=== PATIENT | female | born 1965 | race Caucasian/White ===

== ENCOUNTER 2018-06-26 10:26 | Inpatient (IN) | payer MEDICAID ==
[2018-06-26] VITALS (7 sets, daily range): BP systolic 103–128; BP diastolic 61–86
[~2018-06-26] VITALS: Ht 170.2 cm; Wt 81.8 kg
[2018-06-26] MEDS ORDERED: SODIUM CHLORIDE 0.9% 1,000ML IVBOLUS ONE ×2 (10:30→12:00)
[2018-06-26] MEDS ORDERED: SODIUM CHLORIDE FLUSH 10ML SYR IVF ONE (10:30)
[2018-06-26 11:13] LABS: BASOPHILS # (AUTO) 0.02 x10^3/uL (0-0.1); BASOPHILS % (AUTO) 0 % (0-1); EOSINOPHILS # (AUTO) 0.03 x10^3/uL (0-0.4); EOSINOPHILS % (AUTO) 0 % (1-7); LYMPHOCYTES # (AUTO) 1.63 x10^3/uL (1-3.4); LYMPHOCYTES % (AUTO) 15 % (22-44); MD NO; MEAN CORPUSCULAR HEMOGLOBIN 29.1 pg (27.0-34.8); MEAN CORPUSCULAR HGB CONC 33.5 g/dL (32.4-35.8); MEAN CORPUSCULAR VOLUME 87.1 fL (80-100); MEAN PLATELET VOLUME 7.8 fL (7.4-10.4); MONOCYTES % (AUTO) 4 % (2-9); NEUTROPHILS # (AUTO) 8.75 x10^3/uL (1.8-6.8); NEUTROPHILS % (AUTO) 81 % (42-75); PLATELET COUNT 343 x10^3/uL (130-400); RED CELL DISTRIBUTION WIDTH 13.8 % (9.6-15.2)
[2018-06-26 11:20] LABS: CHLORIDE 109 mmol/L (98-107)
[2018-06-26 11:21] LABS: ALANINE AMINOTRANSFERASE 44 U/L (12-78); ALBUMIN 3.2 g/dL (3.4-5.0); ANION GAP 4 mmol/L (5-15); CALCIUM 8.4 mg/dL (8.5-10.1); CREATININE 1.53 mg/dL (0.55-1.02)
[2018-06-26 11:25] LABS: ALKALINE PHOSPHATASE 70 U/L (45-117); BILIRUBIN,TOTAL 0.3 mg/dL (0.2-1.0); TOTAL PROTEIN 6.6 g/dL (6.4-8.2)
[2018-06-26] MEDS ORDERED: DULO60CA7 PO (13:12)
[2018-06-26] MEDS ORDERED: PHEN37.53 PO (13:12)
[2018-06-26] MEDS ORDERED: TRAZ-137 PO (13:27)
[2018-06-26] MEDS ORDERED: ACETAMINOPHEN 325 MG TABLET PO PRN (14:00)
[2018-06-26] MEDS ORDERED: ONDANSETRON 2MG/ML, 2ML IVPush PRN (14:00)
[2018-06-26] MEDS ORDERED: ONDANSETRON ODT 4 MG PO PRN (14:00)
[2018-06-26] MEDS: ENOXAPARIN 40 MG/0.4 ML SQ SCH (14:59)
[2018-06-26] MEDS: SODIUM CHLORIDE 0.9% 1,000 ML IV SCH ×2 (15:09→21:34)
[2018-06-26 18:58] LABS: AMPHETAMINE SCREEN, URINE Positive (Negative); BARBITURATE SCREEN, URINE Negative (Negative); BENZODIAZEPINE SCREEN, URINE Negative (Negative); CANNABINOID SCREEN, URINE Negative (Negative); COCAINE SCREEN, URINE Negative (Negative); METHADONE SCREEN, URINE Negative (Negative); OPIATE SCREEN, URINE Negative (Negative)
[2018-06-26 19:00] LABS: CULTURE INDICATED? YES; MICROSCOPIC INDICATED
[2018-06-27 01:32] VITALS: BP 126/68
[2018-06-27 07:32] VITALS: BP 149/89
[2018-06-27 07:55] VITALS: BP 152/88
[2018-06-27 07:56] VITALS: BP 157/100
[2018-06-27 07:57] VITALS: BP 157/101
[2018-06-27] MEDS: SODIUM CHLORIDE 0.9% 1,000 ML IV SCH (08:00)
[2018-06-27 10:43] LABS: BASOPHILS # (AUTO) 0.02 x10^3/uL (0-0.1); BASOPHILS % (AUTO) 0 % (0-1); EOSINOPHILS # (AUTO) 0.06 x10^3/uL (0-0.4); EOSINOPHILS % (AUTO) 1 % (1-7); LYMPHOCYTES # (AUTO) 1.61 x10^3/uL (1-3.4); LYMPHOCYTES % (AUTO) 35 % (22-44); MD NO; MEAN CORPUSCULAR HGB CONC 33.3 g/dL (32.4-35.8); MEAN CORPUSCULAR VOLUME 86.9 fL (80-100); MEAN PLATELET VOLUME 7.4 fL (7.4-10.4); MONOCYTES # (AUTO) 0.25 x10^3/uL (0.2-0.8); MONOCYTES % (AUTO) 5 % (2-9); NEUTROPHILS # (AUTO) 2.72 x10^3/uL (1.8-6.8); NEUTROPHILS % (AUTO) 58 % (42-75); PLATELET COUNT 264 x10^3/uL (130-400); RED BLOOD COUNT 4.33 x10^6/uL (3.82-5.3); RED CELL DISTRIBUTION WIDTH 14.1 % (9.6-15.2)
[2018-06-27 10:54] LABS: ALANINE AMINOTRANSFERASE 39 U/L (12-78); ALBUMIN 2.8 g/dL (3.4-5.0); ANION GAP 6 mmol/L (5-15); CALCIUM 7.8 mg/dL (8.5-10.1); CHLORIDE 113 mmol/L (98-107)
[2018-06-27 11:02] LABS: ALKALINE PHOSPHATASE 63 U/L (45-117); BILIRUBIN,TOTAL 0.4 mg/dL (0.2-1.0); CHOLESTEROL, TOTAL 153 mg/dL (140-239); CREATININE 0.94 mg/dL (0.55-1.02); HDL CHOL % 33 % (28-40); HDL CHOLESTEROL (DIRECT) 51 mg/dL (40-60); LDL CHOLESTEROL,CALCULATED 66 mg/dL (54-169); LDL/HDL RATIO 1.3 (0.5-3.0); TOTAL PROTEIN 5.9 g/dL (6.4-8.2); TRIGLYCERIDES 181 mg/dL (50-200); VLDL CHOLESTEROL 36 mg/dL (0-25)
[2018-06-27 12:34] VITALS: BP 148/85
[2018-06-27] MEDS: ENOXAPARIN 40 MG/0.4 ML SQ SCH (14:53)
== END 2018-06-27 17:52 | disposition home or self-care (01) | DRG 684 ==
LOC: ED 12:10 → EDIP 12:11 → ED 12:26 → 4WST 12:59
PROVIDERS: ADMIT Internal Medicine; ATTEND Internal Medicine
DX: N17.0 Acute kidney failure with tubular necrosis (principal); I95.9 Hypotension, unspecified; R55 Syncope and collapse; E86.0 Dehydration; F32.9 Major depressive disorder, single episode, unspecified; Z96.642 Presence of left artificial hip joint; E66.9 Obesity, unspecified; R09.81 Nasal congestion; D72.829 Elevated white blood cell count, unspecified; F41.9 Anxiety disorder, unspecified; G47.00 Insomnia, unspecified; Z82.49 Family history of ischemic heart disease and other diseases of the circulatory system; Z87.440 Personal history of urinary (tract) infections; Z68.28 Body mass index [BMI] 28.0-28.9, adult
CPT/HCPCS: 36415; 71045; 80053; 80061; 80307; 81001; 83735; 84100; 84439; 84443; 84703; 85025; 87086; 93005; 93306; 96360; 96361; J1650; J7030

== ENCOUNTER 2021-05-19 18:04 | Emergency (ER) | payer MEDICAID, OTHER ==
[~2021-05-19] VITALS: Ht 170.2 cm; Wt 100.9 kg
[~2021-05-19 18:04] MED LIST: DULO60CA7 PO; PHEN37.53 PO; TRAZ-175 PO
[2021-05-19 18:28] VITALS: BP 153/99
--- NOTE | 2021-05-19 19:43 | NUR ---
PT PRESENTS TO ER FOR BILATERAL LOWER EXTREMITY SWELLING NOT ASSOCIATIED WITH PAIN, PT DOES HAVE SOME REDNESS NEAR HER ANKLES BILATERALLY, PT STATES SHE IS AMBULATORY AND THAT THIS HAS BEEN GOING ON FOR A FEW MONTHS NOW, PT LAYING IN BED, A/OX4, ALL NEEDS IN REACH, CALL LIGHT IN REACH, NAD AT THIS TIME
[2021-05-19 19:48] LABS: BASOPHILS % (AUTO) 1 % (0-1); EOSINOPHILS % (AUTO) 4 % (1-7); LYMPHOCYTES % (AUTO) 33 % (22-44); MEAN PLATELET VOLUME 6.9 fL (7.4-10.4); MONOCYTES % (AUTO) 5 % (2-9); NEUTROPHILS % (AUTO) 58 % (42-75); PLATELET COUNT 345 x10^3/uL (130-400); RED CELL DISTRIBUTION WIDTH 13.5 % (9.6-15.2)
[2021-05-19 19:56] LABS: ALANINE AMINOTRANSFERASE 43 U/L (12-78); ALBUMIN 3.3 g/dL (3.4-5.0); ANION GAP 6 mmol/L (5-15); CALCIUM 8.5 mg/dL (8.5-10.1); CHLORIDE 110 mmol/L (98-107); CREATININE 0.89 mg/dL (0.55-1.02)
[2021-05-19 20:00] LABS: ALKALINE PHOSPHATASE 121 U/L (45-117); BILIRUBIN,TOTAL 0.3 mg/dL (0.2-1.0); TOTAL PROTEIN 6.7 g/dL (6.4-8.2)
== END 2021-05-19 21:32 ==
LOC: ED 21:21
DX: M25.571 Pain in right ankle and joints of right foot (principal); M25.572 Pain in left ankle and joints of left foot; M79.661 Pain in right lower leg; M79.662 Pain in left lower leg; R60.0 Localized edema; Z72.9 Problem related to lifestyle, unspecified; I95.9 Hypotension, unspecified
CPT/HCPCS: 36415; 80053; 83880; 85025; 93970; 99284